=== PATIENT | male | born 1950 | race Caucasian/White ===

== ENCOUNTER 2017-05-28 08:48 | Emergency (ER) | payer MEDICARE, BC ==
[2017-05-28 09:29] LABS: #Eosinphils 0.2 thou/uL (0.0-0.7); #Lymphocytes 0.9 thou/uL (1.20-3.40); #Monocytes 0.4 thou/uL (0.11-0.59); #Neutrophils 3.5 thou/uL (1.40-6.50); %Basophils 0.7 % (0.0-1.0); %Eosinophils 3.4 % (0.0-10.0); %Lymphocytes 17.5 % (21.0-51.0); %Monocytes 7.2 % (0.0-10.0); %Neutrophils 71.3 % (42.0-75.0); Hemoglobin 14.6 g/dL (14.0-18.0); Mean Corpuscular HGB CONC 33.1 g/dL (32.0-36.0); Mean Corpuscular Volume 93.8 fl (80.0-94.0); Mean Platelet Volume 7.8 fL (7.4-10.4); Platelet Count 164 thou/uL (130-400); RBC Distribution Width 12.1 % (11.5-14.5); White Blood Cell (WBC) Count 4.9 thou/uL (4.8-10.8)
--- NOTE | 2017-05-28 09:29 | RAD ---
UPRIGHT PORTABLE CHEST 1 VIEW: Date: 05/28/17 HISTORY: 67-year-old male with history of right upper side pain for 3 weeks, with pain radiating to back, and intermittent chest pain. COMPARISON: 12/10/10. FINDINGS: Monitor leads overlie the chest. Heart size is within normal limits. Atherosclerosis of aorta. IMPRESSION: No acute intrathoracic disease. POS: NORBERTOH
[2017-05-28 09:52] LABS: ALT (SGPT) 28 U/L (8-55); AST (SGOT) 26 U/L (5-34); Albumin 3.8 g/dL (3.4-4.8); Alkaline Phosphatase 49 U/L (40-150); Anion Gap 11 mmol/L (10-20); BUN (Urea Nitrogen) 14 mg/dL (8.4-25.7); Bilirubin, Total 0.6 mg/dL (0.2-1.2); CK (CPK) 108 U/L (30-200); Calc. Creatinine Clearance 0 mL/min (70-130); Calcium 9.2 mg/dL (7.8-10.44); Carbon Dioxide 24 mmol/L (23-31); Chloride 104 mmol/L (98-107); Estimated GFR-MDRD Greater than 90; Globulin 2.3 g/dL (2.4-3.5); Glucose 171 mg/dL (80-115); Lipase 28 U/L (8-78); Potassium 4.2 mmol/L (3.5-5.1); Protein, Total 6.1 g/dL (5.8-8.1); Sodium 135 mmol/L (136-145)
[2017-05-28 09:56] LABS: CKMB 1.1 ng/mL (0-6.6); Troponin I Less than 0.010 ng/mL (< 0.028)
[2017-05-28 10:22] LABS: Bilirubin Negative (Negative); Blood, Urine Negative (Negative); Clarity CLEAR (Clear); Glucose, Urine (Dipstick) Negative (Negative); Leukocyte Negative (Negative); Nitrite Negative (Negative); Protein, Urine (Dipstick) Negative (Neg-Trace); Urobilinogen 0.2 mg/dL (0.2-1.0)
--- NOTE | 2017-05-28 11:23 | CT ---
CT ABDOMEN AND PELVIS WITH CONTRAST: Date: 05/28/17 HISTORY: Right upper quadrant pain for 3 weeks. COMPARISON: None. FINDINGS: Lung bases are clear. No pericardial effusion. Gallbladder is unremarkable. Too small to characterized hypodensity in hepatic segment 8, near the dome. Likely mild physiologic dilatation of the left mid and distal ureter. No ureteral calcification. Adre nal glands unremarkable. Pancreas unremarkable. Spleen unremarkable. No dilated loops of large or sma ll bowel. Moderate diverticular disease of sigmoid colon without active current inflammation. No retroperitoneal adenopathy. Aortoiliac contour is nonaneurysmal. No free intraperitoneal gas or fl uid. Left total hip arthroplasty. Mild right hip degenerative changes. Calcifications of the interver tebral discs at L3-4, L4-5, and L5-S1. No spinal compression fracture. IMPRESSION: 1. No acute inflammatory process within the abdomen or pelvis. 2. Normal gallbladder. 3. Normal appendix. POS: C
[2017-05-28] MEDS ORDERED: ISOVUE-370 76%-LOCM 1 ML ONE (13:46)
[2017-05-28] MEDS ORDERED: Iopamidol 370 76% 50 ML VIAL FS ONE (13:46)
== END 2017-05-28 12:50 | disposition home or self-care (01) ==
LOC: ERS 08:48
DX: S39.011A Strain of muscle, fascia and tendon of abdomen, initial encounter (principal); G47.30 Sleep apnea, unspecified; I25.10 Atherosclerotic heart disease of native coronary artery without angina pectoris; I25.2 Old myocardial infarction; E78.5 Hyperlipidemia, unspecified; I10 Essential (primary) hypertension; X58.XXXA Exposure to other specified factors, initial encounter
CPT/HCPCS: 71045; 74177; 80053; 81003; 82553; 83690; 83880; 84484; 85025; 93005; 96360; 96361

== ENCOUNTER 2017-09-08 13:23 | Outpatient (CLI) | payer MEDICARE, BC ==
[~2017-09-08 13:23] MED LIST: Gadobenate Dimeglumine 529 MG/1 ML (20ML VIAL) ONE; Iopamidol 370 76% 100 ML VIAL ONE
[2017-09-08 14:03] LABS: Estimated GFR-MDRD - POC Greater than 90
--- NOTE | 2017-09-08 15:10 | CT ---
CT ANGIOGRAM OF THE HEAD CT ANGIOGRAM OF TH ENECK: HISTORY: Upper chest pain. Facial numbness. COMPARISON: None. TECHNIQUE: CT angiogram of the head and neck are performed in the axial plane. Three-dimensional reformatted im ages are submitted for interpretation. FINDINGS: There is no abnormal enhancement of the brain parenchyma on the post contrast images. No evidence of hydrocephalus. Calvarium is intact. Adequate aeration of the visualized sinuses and mastoid air cells. Bilateral ocular lenses are appropriately located. Both globes are intact. Retrobulbar fat is prese rved. Aerodigestive tract is patent. No mucosal abnormality. Limited evaluation of the oral cavity due to dental amalgam artifact. No obvious masses in the oral cavity. Epiglottis has normal caliber. Pre epiglottic fat is preserved. There is no prevertebral soft tissue swelling. Varying degrees of central canal stenosis and foramin al narrowing on the basis of degenerative change. Evaluation is limited by technique. Symmetric attenuation of the parotid and submandibular glands. The left thyroid lobe is unremarkable . Hypodensities in the isthmus and right thyroid lobe are incompletely evaluated. In addition, ther e appears to be a calcification in the anterior aspect of the right thyroid lobe. Symmetric attenuation of sternocleidomastoid muscles. No acute lymphadenopathy by size criteria. Upper mediastinum is unremarkable. Presumed chronic change in the lung apices. CT ANGIOGRAM: Visualized aorta has an overall normal caliber. There is mild atherosclerosis of the proximal descen ding thoracic aorta. RIGHT CAROTID: The origin of the right carotid artery has appropriate enhancement and luminal diameter. The right c ommon carotid artery, carotid bifurcation, and internal carotid artery have appropriate enhancement a nd luminal diameter. LEFT CAROTID: The origin of the left carotid artery has appropriate enhancement and luminal diameter. The left com mon carotid artery, carotid bifurcation, and internal carotid artery have appropriate enhancement and luminal diameter. Bilateral subclavian arteries are patent. Bilateral cervical vertebral arteries are also patent. Ve rtebral arteries are essentially codominant. CT ANGIOGRAM OF THE HEAD: There is symmetric enhancement and luminal diameter of the distal cervical and intracranial internal carotid arteries. Mild atherosclerosis in both cavernous segments. ANTERIOR CIRCULATION: There is symmetric enhancement and luminal diameter of the M1 segments. Slightly diminutive left A1 segment is likely congenital. Proximal A2 segments and MCA branches are unremarkable. POSTERIOR CIRCULATION: The origin of the left and right PICA artery origins are grossly unremarkable. Both vertebral arteri es supply a normal caliber basilar artery. The left P1 segment is unremarkable. The right P1 segmen t may have a origin. No significant stenosis in proximal [employer] arteries. Evaluation is limited. IMPRESSION: 1. Unremarkable CT angiogram of the head and neck. 2. Hypodensities in the thyroid gland. Nonemergent thyroid ultrasound. POS: NORBERTO
--- NOTE | 2017-09-08 15:50 | MRI ---
BRAIN MRI WITH AND WITHOUT CONTRAST: HISTORY: Facial numbness. COMPARISON: None. TECHNIQUE: Brain MRI is performed with and without intravenous Gadolinium administration. Multisequential, mult iplanar imaging is performed. FINDINGS: No hemorrhage on the axial gradient echo sequence. No parenchymal mass, mass effect, or midline shif t. Brain volume is age appropriate. Cortical bautista-white matter differentiation is preserved. The ventricles and sulci are patent and symmetric. Central arterial flow voids are maintained. Absent restricted diffusion. Minimal T2 and FLAIR white matter hyperintensities, nonspecific. The distribution does not favor a d emyelinating process. Calvarium has a normal T1 marrow signal intensity. Midline brain parenchymal structures are unremark able. No pathologic enhancement of the brain parenchyma. Adequate aeration of the sinuses and mastoid air cells. IMPRESSION: Unremarkable pre- and postcontrast brain MRI. POS: BRIAN
== END 2017-09-08 13:24 | disposition home or self-care (01) ==
LOC: TBSIIMAG 13:23
PROVIDERS: ATTEND Neurological Surgery
DX: R51 Headache (principal); Z86.79 Personal history of other diseases of the circulatory system
CPT/HCPCS: 70496; 70498; 70553; 82565; A9579

== ENCOUNTER 2018-02-10 12:49 | Observation (INO) | payer MEDICARE, BC ==
[2018-02-10 13:12] LABS: #Eosinphils 0.2 thou/uL (0.0-0.7); #Lymphocytes 1.1 thou/uL (1.20-3.40); #Monocytes 0.6 thou/uL (0.11-0.59); %Basophils 0.2 % (0.0-1.0); %Eosinophils 4.6 % (0.0-10.0); %Lymphocytes 22.1 % (21.0-51.0); %Neutrophils 61.1 % (42.0-75.0); Mean Corpuscular HGB CONC 33.6 g/dL (32.0-36.0); Mean Corpuscular Hemoglobin 30.8 pg (27.0-31.0); Mean Corpuscular Volume 91.5 fL (78.0-98.0); Mean Platelet Volume 7.9 fL (7.4-10.4); Platelet Count 196 thou/uL (130-400); RBC Distribution Width 12.3 % (11.5-14.5); Red Blood Cell (RBC) Count 4.89 mill/uL (4.70-6.10)
[2018-02-10 13:37] LABS: ALT (SGPT) 31 U/L (8-55); AST (SGOT) 29 U/L (5-34); Albumin 4.2 g/dL (3.4-4.8); Alkaline Phosphatase 65 U/L (40-150); Anion Gap 12 mmol/L (10-20); BUN (Urea Nitrogen) 14 mg/dL (8.4-25.7); Bilirubin, Total 0.7 mg/dL (0.2-1.2); CK (CPK) 112 U/L (30-200); Calc. Creatinine Clearance 0 mL/min (70-130); Calcium 9.6 mg/dL (7.8-10.44); Carbon Dioxide 25 mmol/L (23-31); Chloride 104 mmol/L (98-107); Estimated GFR-MDRD Greater than 90; Globulin 2.9 g/dL (2.4-3.5); Glucose 90 mg/dL (80-115); Potassium 4.1 mmol/L (3.5-5.1); Protein, Total 7.1 g/dL (5.8-8.1); Sodium 137 mmol/L (136-145)
[2018-02-10 13:45] LABS: CKMB 1.3 ng/mL (0-6.6); Troponin I Less than 0.010 ng/mL (< 0.028)
--- NOTE | 2018-02-10 14:03 | RAD ---
SINGLE VIEW OF THE CHEST: History: Chest pressure and right arm pain. Comparison: 05-28-17 FINDINGS: Single view of the chest shows a normal sized cardiomediastinal silhouette with atherosclerotic calci fications in the aorta. There is no evidence of consolidation, mass, or pleural effusion. Degenerativ e changes are seen in the spine. IMPRESSION: 1. No evidence of acute cardiopulmonary disease. 2. Atherosclerotic disease. POS: H
[2018-02-10] MEDS ORDERED: Nitroglycerin 2% Ointment 1 INCH/1 GM Packet ONE (14:12)
[2018-02-10 16:54] LABS: Troponin I Less than 0.010 ng/mL (< 0.028)
[2018-02-10] MEDS ORDERED: Acetaminophen 325 MG TAB PO PRN (17:06)
[2018-02-10] MEDS ORDERED: Lorazepam 0.5 MG TAB PO PRN (17:12)
[2018-02-10 18:17] VITALS: BMI 31.5
[2018-02-10 19:39] LABS: Troponin I Less than 0.010 ng/mL (< 0.028)
[2018-02-10] MEDS ORDERED: Atorvastatin Calcium 10 MG TAB PO SCH (21:00)
[2018-02-11 00:31] VITALS: TEMP 98.3
[2018-02-11] MEDS ORDERED: ADENOSINE 60 MG/20 ML VIAL ONE (09:02)
[2018-02-11 11:20] VITALS: BP 150/74
--- NOTE | 2018-02-11 12:22 | NM ---
CARDIAC SPECT: CLINICAL HISTORY: 67-year-old male with coronary artery disease, chest pain, stent placement, hypertension, and dyslipi demia. TECHNIQUE: A myocardial perfusion scan was performed using the single isotope one day protocol with technetium-9 9m sestamibi. 11 mCi were injected intravenously for the rest exam followed by 33 mCi for the stress exam. Pharmacologic stress with Adenosine was monitored and interpreted by Lam Iyer NP. FINDINGS: Homogeneous tracer distribution is seen in the myocardial segments on stress and rest images without fixed or reversible defects. GATED SPECT LVEF: 65%. WALL MOTION EXAM: Normal. IMPRESSION: Normal myocardial perfusion scan. POS: BRIAN
--- NOTE | 2018-02-11 12:47 | HP ---
CHIEF COMPLAINT: Chest pain. PRIMARY CARE PHYSICIAN: Dr. Wallace Johnson and Dr. Cheung at [place]. HISTORY: This patient is a 67-year-old male with a history of myocardial infarction 15 years ago, he was followed by Dr. Papito Peralta at [place], who is his primary formula mixer. With that original MN 15 years ago, the patient had 3 stents placed in his RCA. The patient presented to the emergency department reporting the pain that was routinely started in the left posterior shoulder area originally 2 days ago, which was a waxing and waning in nature. He subsequently had some dizziness and pressure in the chest area. Today, the patient was loading some storage boxes became a bit dizzy, had similar symptoms. He denied any associated nausea, vomiting, diaphoresis, shortness of breath, or headache. The pain was not specifically severe, but was reminiscent of his prior MN symptoms. REVIEW OF SYSTEMS: The patient occasionally has some pain in his left lower extremity and some generalized morning stiffness. All other systems were reviewed, and all pertinent positives and negatives noted in the history of present illness. PAST MEDICAL HISTORY: Notable for squamous cell skin cancer; sleep apnea, for which he does not use CPAP. He had prior Clostridium difficile infection in 2010. He has osteoarthritis, coronary artery disease, hyperlipidemia, hypertension, and vitiligo. PAST SURGICAL HISTORY: The patient had prior ENT surgery to address sleep apnea. He has had a left hip surgery in 2006. FAMILY HISTORY: Both parents had coronary artery disease and coronary artery bypass. His father of stroke, at 70. SOCIAL HISTORY: The patient is a nonsmoker. He does drink 2 to 3 beers per day. Non-drug user. He is . His is a nurse practitioner. The patient is a full code, and his would be his surrogate decision maker. ALLERGIES: NIACIN CAUSES HIM FLUSHING AND LATEX. MEDICATIONS: 1. Lipitor 10 mg p.o. daily. 2. Zetia 10 mg p.o. daily. 3. Enalapril 5 mg daily. 4. Aspirin 81 mg daily. 5. Lorazepam 0.5 mg at bedtime p.r.n. sleep. 6. Vitamin D every other day. 7. Mina supplement. PHYSICAL EXAMINATION: VITAL SIGNS: Pulse 70, respirations 16, blood pressure 139/68, temperature 98.4 , and O2 saturation 96% on room air. GENERAL APPEARANCE: Age-appropriate male, who is in no distress. He is awake, alert, oriented, pleasant, and cooperative. HEENT: PERRL. No OP lesions. NECK: Supple and symmetric. HEART: Regular rate and rhythm. No murmurs, gallops, or rubs. LUNGS: Clear to auscultation bilaterally with good chest wall expansion and air exchange. ABDOMEN: Soft, nontender, and nondistended. Positive bowel sounds. No masses. No organomegaly. EXTREMITIES: Warm and dry with no cyanosis, clubbing, or edema. SKIN: Exam does show significant diminished pigmentation, especially in upper extremities. NEUROLOGIC: The patient has no focal deficits. PSYCHIATRIC: The patient has normal affect and behavior. LABORATORY DATA: White count 5, hemoglobin 15, and platelets 196. Sodium 137, potassium 4.1, CO2 of 25, BUN 14, creatinine 0.82, and glucose 90. CK-MB 1.3, troponin less than 0.01. EKG is completely normal. Chest x-ray is normal. IMPRESSION AND PLAN: 1. Chest pain. The patient was placed on observation. HEART score of 5. He will have serial cardiac isoenzymes to evaluate for myocardial infarction. The patient has not had a stress test in a couple of years. We will anticipate performing a stress test tomorrow assuming troponins are negative. 2. Hypertension. Continue with the patient's usual home dose of enalapril. 3. Hyperlipidemia. Continue with atorvastatin and Zetia. Job ID: [id number] [facility]
--- NOTE | 2018-02-12 19:01 | EKG ---
Test Reason : CHEST PAIN Blood Pressure : / mmHG Vent. Rate : 069 BPM Atrial Rate : 069 BPM P-R Int : 176 ms QRS Dur : 084 ms QT Int : 400 ms P-R-T Axes : 023 009 026 degrees QTc Int : 428 ms Normal sinus rhythm Normal ECG Confirmed by ANAI IBARRA, DEANN Fontaine ([id number]), video editor HOLLIE PERRY ([id number]) on 02/12/2018 7:00:49 PM Referred By: Confirmed By:DEANN OSPINA MD
--- NOTE | 2018-02-14 14:49 | DIS ---
DATE OF ADMISSION: 02/10/2018 DATE OF DISCHARGE: 02/11/2018 DISCHARGE DIAGNOSES: 1. Chest pain. 2. History of coronary artery disease. 3. History of hypertension. 4. History of hyperlipidemia. HISTORY: This patient is a 67-year-old male followed by Dr. Wallace Johnson and Dr. Cheung at the [place] [facility] in [place]. The patient typically sees Dr. Papito Peralta for Cardiology. The patient had an OH about 15 years prior and had three stents placed at that time. The patient has been doing well and following with Dr. Peralta subsequent. He, however, had not had a stress test in a little while because he was doing quite well. The patient presented to the emergency department complaining of some chest pain that was somewhat reminiscent of the pain he had with his OH previously. His initial workup was unremarkable with negative troponins and EKG; however, HEART score of 5 necessitated observation stay. HOSPITAL COURSE: The patient was placed on observation and ruled out with serial negative troponins. His telemetry remained unremarkable. He did undergo a nuclear medicine stress test, which revealed no ischemic findings. The patient's symptoms had fully resolved and he felt well and was felt to be appropriate for discharge to home. DISPOSITION: The patient is discharged to home. He is to have a normal activity level and he is to be on a heart-healthy diet. DISCHARGE MEDICATIONS: He will be on; 1. CoQ10 100 daily. 2. Aspirin 81 mg daily. 3. Multivitamin one daily. 4. Lorazepam 0.5 q.6 p.r.n. 5. Zetia 10 mg daily. 6. Enalapril 5 mg daily. 7. Atorvastatin 10 mg at bedtime. FOLLOWUP: He is to follow up with Dr. Wallace Johnson, Dr. Papito Peralta, and Dr. Cheung. He should return to the hospital should he have any problems prior to that time. Job ID: [id number]
== END 2018-02-11 14:15 | disposition home or self-care (01) ==
LOC: ERS 12:49 → ERHOLD 15:34 → 2SW 17:58
PROVIDERS: ADMIT Internal Medicine; ATTEND Internal Medicine
DX: R07.89 Other chest pain (principal); I25.2 Old myocardial infarction; R42 Dizziness and giddiness; G47.30 Sleep apnea, unspecified; M19.90 Unspecified osteoarthritis, unspecified site; I25.10 Atherosclerotic heart disease of native coronary artery without angina pectoris; E78.5 Hyperlipidemia, unspecified; I10 Essential (primary) hypertension; Z88.8 Allergy status to other drugs, medicaments and biological substances; Z91.040 Latex allergy status; Z79.82 Long term (current) use of aspirin; Z79.899 Other long term (current) drug therapy; Z95.5 Presence of coronary angioplasty implant and graft
CPT/HCPCS: 71045; 78452; 80053; 82550; 82553; 84484 ×2; 85025; 93005; 93017; 99285; A9500; G0378 ×2; 36415; J0153

== ENCOUNTER 2018-07-03 14:01 | Emergency (ER) | payer MEDICARE, BC ==
[2018-07-03] MEDS ORDERED: Aspirin Chewable 81 MG TAB ONE (14:49)
[2018-07-03 15:01] LABS: #Eosinphils 0.1 thou/uL (0.0-0.7); #Lymphocytes 0.8 thou/uL (1.20-3.40); #Monocytes 0.5 thou/uL (0.11-0.59); %Basophils 0.9 % (0.0-1.0); %Eosinophils 2.3 % (0.0-10.0); %Lymphocytes 17.8 % (21.0-51.0); %Monocytes 11.6 % (0.0-10.0); %Neutrophils 67.4 % (42.0-75.0); Hemoglobin 14.1 g/dL (14.0-18.0); Mean Corpuscular HGB CONC 32.1 g/dL (32.0-36.0); Mean Corpuscular Volume 90.2 fL (78.0-98.0); Mean Platelet Volume 8.1 fL (7.4-10.4); Platelet Count 149 thou/uL (130-400); RBC Distribution Width 12.9 % (11.5-14.5); Red Blood Cell (RBC) Count 4.85 mill/uL (4.70-6.10); White Blood Cell (WBC) Count 4.5 thou/uL (4.8-10.8)
[2018-07-03 15:25] LABS: ALT (SGPT) 25 U/L (8-55); AST (SGOT) 26 U/L (5-34); Albumin 4.1 g/dL (3.4-4.8); Alkaline Phosphatase 54 U/L (40-150); Anion Gap 12 mmol/L (10-20); BUN (Urea Nitrogen) 14 mg/dL (8.4-25.7); Bilirubin, Total 0.3 mg/dL (0.2-1.2); CK (CPK) 124 U/L (30-200); Calc. Creatinine Clearance 0 mL/min (70-130); Calcium 9.3 mg/dL (7.8-10.44); Carbon Dioxide 25 mmol/L (23-31); Chloride 107 mmol/L (98-107); Estimated GFR-MDRD 77; Globulin 2.6 g/dL (2.4-3.5); Glucose 96 mg/dL (80-115); Potassium 4.2 mmol/L (3.5-5.1); Protein, Total 6.7 g/dL (5.8-8.1); Sodium 140 mmol/L (136-145)
--- NOTE | 2018-07-03 15:50 | RAD ---
EXAM: CHEST ONE VIEW HISTORY: Dyspnea and dizziness COMPARISON: 04/12/2017 FINDINGS: Cardiac silhouette is magnified by projection but is stable in size compared to prior study. The pulm onary vasculature is within normal limits. The lungs are clear. The osseous structures are intact. Vascular calcifications are seen in the thoracic aorta. IMPRESSION: No acute cardiopulmonary process.
== END 2018-07-03 17:04 | disposition home or self-care (01) ==
LOC: SCSER 14:01
DX: R42 Dizziness and giddiness (principal); I25.10 Atherosclerotic heart disease of native coronary artery without angina pectoris; I25.2 Old myocardial infarction; E78.5 Hyperlipidemia, unspecified; I10 Essential (primary) hypertension
CPT/HCPCS: 71045; 80053; 82550; 84484; 85025; 93005